=== PATIENT | female | born 1990 | race American Indian/Alaskan Native ===

== ENCOUNTER 2021-12-15 10:31 | Emergency (ER) | payer OTHER ==
[~2021-12-15] VITALS: Ht 154.9 cm; Wt 52.2 kg
[2021-12-15] MEDS ORDERED: ONDA4ODT MM (12:07)
== END 2021-12-15 12:15 | disposition home or self-care (01) ==
LOC: ER 10:31
DX: R11.2 Nausea with vomiting, unspecified (principal); R51.9 Headache, unspecified; R50.9 Fever, unspecified; J02.9 Acute pharyngitis, unspecified; Z20.822 Contact with and (suspected) exposure to COVID-19
CPT/HCPCS: A9270